=== PATIENT | female | born 1990 ===

== ENCOUNTER 2019-07-08 07:55 | Inpatient (IN) | payer BC ==
[2019-07-08] MEDS ORDERED: Tranexamic Acid 1,000 MG in Sodium Chloride 0.9% 100 ML IV PRN (08:42)
[2019-07-08] MEDS ORDERED: Carboprost Tromethamine 250 MCG/1 ML Amp IM PRN (08:42)
[2019-07-08] MEDS ORDERED: Sodium Chloride 0.9% 10 ML SDV IV PRN (08:42)
[2019-07-08] MEDS ORDERED: Misoprostol 25 MCG (1/4 of 100 MCG) Tab VAG PRN (08:42)
[2019-07-08] MEDS ORDERED: Lidocaine 1% 50 ML MDV INJECT PRN (08:42)
[2019-07-08] MEDS ORDERED: Water For Irrigation,Sterile 1,000 ML Container IRR PRN (08:42)
[2019-07-08] MEDS ORDERED: Sodium Chloride 0.9% 10 ML Syringe FLUSH PRN (08:42)
[2019-07-08] MEDS ORDERED: Misoprostol 200 MCG Tab PO PRN (08:42)
[2019-07-08] MEDS ORDERED: Ondansetron 4 MG/2 ML SDV IVPUSH PRN (08:42)
[2019-07-08] MEDS ORDERED: Methylergonovine 0.2 MG/1 ML Amp IM PRN (08:42)
[2019-07-08] MEDS ORDERED: Sodium Chloride 0.9% 2.5 ML Syringe FLUSH PRN (08:42)
[2019-07-08] MEDS ORDERED: Butorphanol 1 MG/ML SDV IVPUSH PRN (08:42)
[2019-07-08] MEDS ORDERED: Terbutaline 1 MG/ML SDV SUBCUT PRN (08:42)
[2019-07-08] MEDS ORDERED: Oxytocin/0.9 % Sodium Chloride 30 UNIT/500 ML BAG IV SCH ×2 (08:45)
[2019-07-08] MEDS: Lactated Ringers 1,000 ML IV SCH ×2 (08:54→21:36)
[2019-07-08] MEDS: Misoprostol 25 MCG (1/4 of 100 MCG) Tab VAG PRN ×2 (13:02→17:14)
[2019-07-09] MEDS: Nalbuphine 10 MG/1 ML Vial IVPUSH PRN ×2 (00:03→01:09)
[2019-07-09] MEDS ORDERED: Benzocaine/Menthol 20%-0.5% Spray 78 GM Cannister TOP PRN (02:39)
[2019-07-09] MEDS ORDERED: Witch Hazel Medicated Pads 40/Jar TOP PRN (02:39)
[2019-07-09] MEDS ORDERED: Ibuprofen 400 MG Tab PO PRN (02:39)
[2019-07-09] MEDS ORDERED: Lanolin 100% Cream 7 GM Tube TOP PRN (02:39)
[2019-07-09] MEDS ORDERED: Acetaminophen 500 MG Tab PO PRN ×2 (02:39)
[2019-07-09] MEDS ORDERED: Bisacodyl 10 MG Supp RECTAL PRN (02:39)
[2019-07-09] MEDS ORDERED: oxyCODONE 5 MG Tab PO PRN (02:39)
[2019-07-09] MEDS ORDERED: Docusate Sodium 100 MG Cap PO PRN (02:39)
--- NOTE | 2019-07-09 02:44 | PCM.DEL ---
L & D Note - General Info Date of Service: 07/09/19 Mother's Due Date: 07/10/19 - Delivery Note Labor: Augmented by Oxytocin Cervical Ripening Method: Misoprostil Delivery Outcome: Livebirth Presentation: Right Occiput Anterior (DAVION) Nuchal Cord: None Amniotic Fluid Description: Clear Laceration: 1st Degree Suture type: Other (monocryl 2.0) Suture size: 2-0 Cord: 3 Vessels Estimated Blood Loss: 300 Score 1 min: 8 Score 5 min: 9 Delivery Comments (Free Text/Narrative):: Live male delivered at 2.04am , 8/9 , weight pending - General Info Date of Service: 07/09/19 - Patient Data Weight - Most Recent: 70.76 kg Lab Results Last 24 Hours: Laboratory Results - last 24 hr 07/08/19 07/08/19 Range/Units 09:35 09:35 WBC 12.87 H (4.0-11.0) K/uL RBC 4.27 L (4.30-5.90) M/uL Hgb 12.6 (12.0-16.0) g/dL Hct 38.0 (36.0-46.0) % MCV 89.0 (80.0-98.0) fL MCH 29.5 (27.0-32.0) pg MCHC 33.2 (31.0-37.0) g/dL RDW Std Deviation 43.9 (28.0-62.0) fl RDW Coeff of Latrice 14 (11.0-15.0) % Plt Count 182 (150-400) K/uL MPV 10.50 (7.40-12.00) fL Nucleated RBC % 0.0 /100WBC Nucleated RBCs # 0 K/uL Blood Type A POSITIVE Antibody Screen NEGATIVE Med Orders - Current: Current Medications Acetaminophen (Tylenol Extra Strength) 500 mg PO Q4H PRN PRN Reason: Pain Butorphanol Tartrate (Stadol) 1 mg IVPUSH Q1H PRN PRN Reason: Pain Carboprost Tromethamine (Hemabate Ds) 250 mcg IM ASDIRECTED PRN PRN Reason: Post Hemorrhage Lactated Ringer's (Ringers, Lactated) 1,000 mls @ 150 mls/hr IV ASDIRECTED VANDANA Last Admin: 07/08/19 21:36 Dose: 50 mls/hr Oxytocin/Sodium Chloride (Oxytocin 30 Unit/500 Ml-Ns) 30 unit in 500 mls @ 999 mls/hr IV TITRATE VANDANA Oxytocin/Sodium Chloride (Oxytocin 30 Unit/500 Ml-Ns) 30 unit in 500 mls @ 2 mls/hr IV TITRATE VANDANA; Protocol Last Titration: 07/08/19 22:52 Dose: 4 munits/min, 4 mls/hr Tranexamic Acid 1,000 mg/ (Sodium Chloride) 110 mls @ 660 mls/hr IV ONETIME PRN PRN Reason: Bleeding Ibuprofen (Motrin) 400 mg PO Q4H PRN PRN Reason: Pain Ibuprofen (Motrin) 800 mg PO Q6H PRN PRN Reason: Pain Lidocaine HCl (Xylocaine 1%) 50 ml INJECT ONETIME PRN PRN Reason: Laceration repair Last Admin: 07/09/19 02:18 Dose: 50 ml Methylergonovine Maleate (Methergine) 0.2 mg IM ASDIRECTED PRN PRN Reason: Post Hemorrhage Misoprostol (Cytotec) 200 mcg PO ONETIME PRN PRN Reason: Post Hemorrhage Misoprostol (Cytotec) 25 mcg VAG ONETIME PRN PRN Reason: Cervical Ripening Last Admin: 07/08/19 09:09 Dose: 25 mcg Misoprostol (Cytotec) 25 mcg VAG Q4H PRN PRN Reason: Cervical Ripening Last Admin: 07/08/19 17:14 Dose: 25 mcg Nalbuphine HCl (Nubain) 10 mg IVPUSH Q1H PRN PRN Reason: Pain (severe 7-10) Last Admin: 07/09/19 01:09 Dose: 10 mg Ondansetron HCl (Zofran) 4 mg IVPUSH Q4H PRN PRN Reason: Nausea/Vomiting Oxycodone HCl (Oxycodone) 5 mg PO Q2H PRN PRN Reason: Pain Sodium Chloride (Saline Flush) 10 ml FLUSH ASDIRECTED PRN PRN Reason: Keep Vein Open Sodium Chloride (Saline Flush) 2.5 ml FLUSH ASDIRECTED PRN PRN Reason: Keep Vein Open Sodium Chloride (Normal Saline) 10 ml IV ASDIRECTED PRN PRN Reason: IV Use Sterile Water (Sterile Water For Irrigation) 1,000 ml IRR ASDIRECTED PRN PRN Reason: delivery Last Admin: 07/09/19 02:18 Dose: 1,000 ml Terbutaline Sulfate (Brethine) 0.25 mg SUBCUT ASDIRECTED PRN PRN Reason: Tacysystole Witch Della (Tucks) 1 pad TOP ASDIRECTED PRN PRN Reason: comfort care - Problem List & Annotations (1) Vaginal delivery SNOMED Code(s): 301590747 Code(s): O80 - ENCOUNTER FOR FULL-TERM UNCOMPLICATED DELIVERY Status: Acute Current Visit: Yes - Problem List Review Problem List Initiated/Reviewed/Updated: Yes - My Orders Last 24 Hours: My Active Orders 07/08/19 08:42 Patient Status [ADT] Routine Bedrest Bathroom Privileges [RC] ASDIRECTED Communication Order [RC] ASDIRECTED Communication Order [RC] ASDIRECTED Communication Order [RC] ASDIRECTED Heart Tones [RC] CONTINUOUS Non Stress Test [RC] PER UNIT ROUTINE May Shower [RC] ASDIRECTED Notify Provider [RC] PRN Notify Provider [RC] PRN Notify Provider [RC] PRN Notify Provider [RC] STAT Oxygen Therapy [RC] ASDIRECTED Up ad Suzie [RC] ASDIRECTED Vaginal Exam [RC] PRN Vaginal Exam [RC] PRN Vital Signs [RC] PER UNIT ROUTINE Vital Signs [RC] PER UNIT ROUTINE Butorphanol [Stadol] 1 mg IVPUSH Q1H PRN Carboprost Tromethamine [Hemabate DS] 250 mcg IM ASDIRECTED PRN Lidocaine 1% [Xylocaine 1%] 50 ml INJECT ONETIME PRN Methylergonovine [Methergine] 0.2 mg IM ASDIRECTED PRN Nalbuphine [Nubain] 10 mg IVPUSH Q1H PRN Ondansetron [Zofran] 4 mg IVPUSH Q4H PRN Sodium Chloride 0.9% [Normal Saline] 10 ml IV ASDIRECTED PRN Sodium Chloride 0.9% [Saline Flush] 10 ml FLUSH ASDIRECTED PRN Sodium Chloride 0.9% [Saline Flush] 2.5 ml FLUSH ASDIRECTED PRN Terbutaline [Brethine] 0.25 mg SUBCUT ASDIRECTED PRN Tranexamic Acid [Cyklokapron] 1,000 mg Sodium Chloride 0.9% [Normal Saline] 100 ml IV ONETIME Water For Irrigation,Sterile [Sterile Water for Irrigation] 1,000 ml IRR ASDIRECTED PRN miSOPROStol [Cytotec] 200 mcg PO ONETIME PRN miSOPROStol [Cytotec] 25 mcg VAG ONETIME PRN miSOPROStol [Cytotec] 25 mcg VAG Q4H PRN Peripheral IV Insertion Adult [OM.PC] Routine 07/08/19 08:45 Lactated Ringers [Ringers, Lactated] 1,000 ml IV ASDIRECTED Oxytocin/0.9 % Sodium Chloride [Oxytocin 30 Unit/500 ML-NS] 30 unit in 500 ml IV TITRATE Oxytocin/0.9 % Sodium Chloride [Oxytocin 30 Unit/500 ML-NS] 30 unit in 500 ml IV TITRATE Medication Administration Instruction [OM.PC] Q3H 07/09/19 02:39 Patient Status [ADT] Routine May Shower [RC] ASDIRECTED Up ad Suzie [RC] ASDIRECTED Vital Signs [RC] PER UNIT ROUTINE Acetaminophen [Tylenol Extra Strength] 1,000 mg PO Q4H PRN Acetaminophen [Tylenol Extra Strength] 500 mg PO Q4H PRN Benzocaine/Menthol [Dermoplast Pain Relief 20%-0.5% [place]] 78 gm TOP ASDIRECTED PRN Bisacodyl [Dulcolax] 10 mg RECTAL ONETIME PRN Docusate Sodium [Colace] 100 mg PO BID PRN Ibuprofen [Motrin] 400 mg PO Q4H PRN Ibuprofen [Motrin] 800 mg PO Q6H PRN Lanolin [Lansinoh HPA] See Dose Instructions TOP ASDIRECTED PRN Witch Della [Tucks] 1 pad TOP ASDIRECTED PRN oxyCODONE 5 mg PO Q2H PRN Assess Lochia [WOMSER] Per Unit Routine Assess Uterine Involution [WOMSER] Per Unit Routine Peripheral IV Discontinue [OM.PC] Routine 07/10/19 05:11 HEMOGLOBIN/HEMATOCRIT,HH [HEME] Timed
--- NOTE | 2019-07-09 14:27 | OR ---
SURGEON: MARCY SERRANO DATE OF PROCEDURE: 07/09/2019 PREOPERATIVE DIAGNOSES: A 29-year-old, G1, P0, at 39 weeks and 6 days, admitted for induction of labor, elective. POSTOPERATIVE DIAGNOSES: A 29-year-old, G1, P0, at 39 weeks and 6 days, admitted for induction of labor, elective. PROCEDURE: Normal spontaneous vaginal delivery. ESTIMATED BLOOD LOSS: 300. IV FLUID: Pitocin running. ANESTHESIA: Local. NOTES AND FINDINGS: Live male delivered at 2:04 a.m. score is 8 and 9, weight is 3380 g. Date of delivery was 07/09/2019. BRIEF HISTORY: A 29-year-old, G1, P0 at 39 weeks and 6 days, low risk patient who wanted an elective induction of labor. Induction of labor was started with Cytotec, after which she got Pitocin. AROM was done, which was noted to be clear fluid. She also had a very bloody show. Tracing was category I. She then made change to being fully dilated and she was encouraged to push procedure with good pushing effort. PROCEDURE: She delivered the head, subsequently by the anterior and posterior shoulder. The body of the infant was delivered. Infant was placed on maternal abdomen. Delayed cord clamping was observed. Placenta was delivered via controlled cord traction. Cord blood gases were obtained. The perineum was inspected, noted to have first-degree laceration, which was approximated after infiltration of local anesthesia with 2-0 Monocryl. Uterus was noted to be contracted. All instrument and pad count were correct x2. The patient tolerated the procedure well and was left the Labor and Delivery room in stable condition. JENNI TANG /[id number] MTDNata
[2019-07-09] MEDS: Ibuprofen 800 MG Tab PO PRN (15:24)
[2019-07-10] MEDS: Ibuprofen 800 MG Tab PO PRN (05:14)
--- NOTE | 2019-07-10 09:01 | PCM.PNPP ---
- General Info Date of Service: 07/10/19 Functional Status: Reports: Pain Controlled, Tolerating Diet, Ambulating, Urinating - Review of Systems General: Reports: No Symptoms HEENT: Reports: No Symptoms Pulmonary: Reports: No Symptoms Cardiovascular: Reports: No Symptoms Gastrointestinal: Reports: No Symptoms Genitourinary: Reports: No Symptoms Musculoskeletal: Reports: No Symptoms Skin: Reports: No Symptoms Neurological: Reports: No Symptoms Psychiatric: Reports: No Symptoms - General Info Date of Service: 07/10/19 - Patient Data Vital Signs - Most Recent: Last Vital Signs Temp 36.9 C 07/10/19 07:45 Pulse 77 07/10/19 07:45 Resp 16 07/10/19 07:45 BP 97/53 L 07/10/19 07:46 Pulse Ox 97 07/10/19 07:45 Weight - Most Recent: 70.76 kg Lab Results - Last 24 Hours: Laboratory Results - last 24 hr 07/10/19 Range/Units 05:00 Hgb 11.8 L (12.0-16.0) g/dL Hct 36.7 (36.0-46.0) % Med Orders - Current: Current Medications Acetaminophen (Tylenol Extra Strength) 500 mg PO Q4H PRN PRN Reason: Pain Acetaminophen (Tylenol Extra Strength) 1,000 mg PO Q4H PRN PRN Reason: Pain Last Admin: 07/09/19 20:57 Dose: 1,000 mg Benzocaine/Menthol (Dermoplast Pain Relief 20%-0.5% [place]) 78 gm TOP ASDIRECTED PRN PRN Reason: Perineal Comfort Measure Last Admin: 07/09/19 17:57 Dose: 78 gm Bisacodyl (Dulcolax) 10 mg RECTAL ONETIME PRN PRN Reason: Constipation Butorphanol Tartrate (Stadol) 1 mg IVPUSH Q1H PRN PRN Reason: Pain Carboprost Tromethamine (Hemabate Ds) 250 mcg IM ASDIRECTED PRN PRN Reason: Post Hemorrhage Docusate Sodium (Colace) 100 mg PO BID PRN PRN Reason: Constipation Emollient Ointment (Lansinoh Hpa) 0 gm TOP ASDIRECTED PRN PRN Reason: Sore Nipples Lactated Ringer's (Ringers, Lactated) 1,000 mls @ 150 mls/hr IV ASDIRECTED VANDANA Last Admin: 07/08/19 21:36 Dose: 50 mls/hr Oxytocin/Sodium Chloride (Oxytocin 30 Unit/500 Ml-Ns) 30 unit in 500 mls @ 999 mls/hr IV TITRATE VANDANA Oxytocin/Sodium Chloride (Oxytocin 30 Unit/500 Ml-Ns) 30 unit in 500 mls @ 2 mls/hr IV TITRATE VANDANA; Protocol Last Titration: 07/09/19 02:10 Dose: 999 mls/hr Tranexamic Acid 1,000 mg/ (Sodium Chloride) 110 mls @ 660 mls/hr IV ONETIME PRN PRN Reason: Bleeding Ibuprofen (Motrin) 400 mg PO Q4H PRN PRN Reason: Pain Ibuprofen (Motrin) 800 mg PO Q6H PRN PRN Reason: Pain Last Admin: 07/10/19 05:14 Dose: 800 mg Lidocaine HCl (Xylocaine 1%) 50 ml INJECT ONETIME PRN PRN Reason: Laceration repair Last Admin: 07/09/19 02:18 Dose: 50 ml Methylergonovine Maleate (Methergine) 0.2 mg IM ASDIRECTED PRN PRN Reason: Post Hemorrhage Misoprostol (Cytotec) 200 mcg PO ONETIME PRN PRN Reason: Post Hemorrhage Misoprostol (Cytotec) 25 mcg VAG ONETIME PRN PRN Reason: Cervical Ripening Last Admin: 07/08/19 09:09 Dose: 25 mcg Misoprostol (Cytotec) 25 mcg VAG Q4H PRN PRN Reason: Cervical Ripening Last Admin: 07/08/19 17:14 Dose: 25 mcg Nalbuphine HCl (Nubain) 10 mg IVPUSH Q1H PRN PRN Reason: Pain (severe 7-10) Last Admin: 07/09/19 01:09 Dose: 10 mg Ondansetron HCl (Zofran) 4 mg IVPUSH Q4H PRN PRN Reason: Nausea/Vomiting Oxycodone HCl (Oxycodone) 5 mg PO Q2H PRN PRN Reason: Pain Sodium Chloride (Saline Flush) 10 ml FLUSH ASDIRECTED PRN PRN Reason: Keep Vein Open Sodium Chloride (Saline Flush) 2.5 ml FLUSH ASDIRECTED PRN PRN Reason: Keep Vein Open Sodium Chloride (Normal Saline) 10 ml IV ASDIRECTED PRN PRN Reason: IV Use Sterile Water (Sterile Water For Irrigation) 1,000 ml IRR ASDIRECTED PRN PRN Reason: delivery Last Admin: 07/09/19 02:18 Dose: 1,000 ml Terbutaline Sulfate (Brethine) 0.25 mg SUBCUT ASDIRECTED PRN PRN Reason: Tacysystole Witch Della (Tucks) 1 pad TOP ASDIRECTED PRN PRN Reason: comfort care Last Admin: 07/09/19 17:56 Dose: 1 canister - Interaction Support Person: - Recovery Exam Fundal Tone: Firm Fundal Level: At Umbilicus Fundal Placement: Midline Lochia Amount: Scant Lochia Color: Rubra/Red Episiotomy/Laceration: Approximated Bladder Status: Voiding Urinary Elimination: Voided - Exam General: Alert HEENT: Pupils Equal Neck: Supple Lungs: Clear to Auscultation Cardiovascular: Regular Rate, Regular Rhythm GI/Abdominal Exam: Normal Bowel Sounds Extremities: Normal Inspection Neurological: No New Focal Deficit - Problem List & Annotations (1) Vaginal delivery SNOMED Code(s): 816989831 Code(s): O80 - ENCOUNTER FOR FULL-TERM UNCOMPLICATED DELIVERY Status: Acute Current Visit: Yes - Problem List Review Problem List Initiated/Reviewed/Updated: Yes - Assessment Assessment:: 29yo P1 s/p , PPD1 , stable , ambulating , tolerating regular diet - Plan Plan:: Discharge home today
== END 2019-07-10 12:05 | disposition home or self-care (01) | DRG 560 ==
LOC: MW.OBCHECK 07:55 → MW.OB 07:56 → OBSVTOIN 07-09 02:04 → MW.OB 07-09 05:57
PROVIDERS: ADMIT Obstetrics & Gynecology; ATTEND Obstetrics & Gynecology
PROC: 10E0XZZ Delivery of Products of Conception, External Approach (ICD-10-PCS; principal; 2019-07-09)
PROC: 10907ZC Drainage of Amniotic Fluid, Therapeutic from Products of Conception, Via Natural or Artificial Opening (ICD-10-PCS; 2019-07-09)
PROC: 3E0P7VZ Introduction of Hormone into Female Reproductive, Via Natural or Artificial Opening (ICD-10-PCS; 2019-07-09)
PROC: 0HQ9XZZ Repair Perineum Skin, External Approach (ICD-10-PCS; 2019-07-09)
DX: O70.0 First degree perineal laceration during delivery (principal); Z37.0 Single live birth; Z3A.39 39 weeks gestation of pregnancy; Z90.49 Acquired absence of other specified parts of digestive tract
CPT/HCPCS: 36415; 59025; 59409; 85014; 85018; 85027; 86850; 86900; 86901; A9270-GY; J2001; J2300; J2590; J7120

== ENCOUNTER 2022-02-11 20:23 | Inpatient (IN) | payer BC ==
[2022-02-11] MEDS ORDERED: Water For Irrigation,Sterile 1,000 ML Container IRR PRN (21:18)
[2022-02-11] MEDS ORDERED: Sodium Chloride 0.9% 2.5 ML Syringe FLUSH PRN (21:18)
[2022-02-11] MEDS ORDERED: Sodium Chloride 0.9% 20 ML SDV IV PRN (21:18)
[2022-02-11] MEDS ORDERED: Misoprostol 25 MCG (1/4 of 100 MCG) Tab VAG PRN (21:18)
[2022-02-11] MEDS ORDERED: Sodium Chloride 0.9% 10 ML Syringe FLUSH PRN (21:18)
[2022-02-11] MEDS ORDERED: Tranexamic Acid 1,000 MG in Sodium Chloride 0.9% 100 ML IV PRN (21:18)
[2022-02-11] MEDS ORDERED: Lidocaine 1% 50 ML MDV INJECT PRN (21:18)
[2022-02-11] MEDS ORDERED: Misoprostol 200 MCG Tab PO PRN (21:18)
[2022-02-11] MEDS ORDERED: Butorphanol 1 MG/ML SDV IVPUSH PRN (21:18)
[2022-02-11] MEDS ORDERED: Methylergonovine 0.2 MG/1 ML Amp IM PRN (21:18)
[2022-02-11] MEDS ORDERED: Carboprost Tromethamine 250 MCG/1 ML Amp IM PRN (21:18)
[2022-02-11] MEDS ORDERED: Terbutaline 1 MG/ML SDV SUBCUT PRN (21:18)
[2022-02-11] MEDS ORDERED: Oxytocin/0.9 % Sodium Chloride 30 UNIT/500 ML BAG IV SCH ×2 (21:30)
[2022-02-11] MEDS: Lactated Ringers 1,000 ML IV SCH (23:00)
[2022-02-12] MEDS: Lactated Ringers 1,000 ML IV SCH (05:55)
[2022-02-12] MEDS ORDERED: oxyCODONE 5 MG Tab PO PRN (10:48)
[2022-02-12] MEDS ORDERED: Ibuprofen 400 MG Tab PO PRN (10:48)
[2022-02-12] MEDS ORDERED: Benzocaine/Menthol 20%-0.5% Spray 78 GM Cannister TOP PRN (10:48)
[2022-02-12] MEDS ORDERED: Witch Hazel Medicated Pads 40/Jar TOP PRN (10:48)
[2022-02-12] MEDS ORDERED: Docusate Sodium 100 MG Cap PO PRN (10:48)
[2022-02-12] MEDS ORDERED: Lanolin 100% Cream 7 GM Tube TOP PRN (10:48)
[2022-02-12] MEDS ORDERED: Acetaminophen 500 MG Tab PO PRN (10:48)
[2022-02-12] MEDS ORDERED: Bisacodyl 10 MG Supp RECTAL PRN (10:48)
[2022-02-12] MEDS: Acetaminophen 500 MG Tab PO PRN ×2 (15:45→19:56)
[2022-02-12] MEDS: Ibuprofen 800 MG Tab PO PRN (17:50)
[2022-02-13] MEDS: Ibuprofen 800 MG Tab PO PRN ×2 (00:49→08:16)
[2022-02-13] MEDS: Acetaminophen 500 MG Tab PO PRN ×2 (00:50→08:16)
== END 2022-02-13 14:30 | disposition home or self-care (01) | DRG 560 ==
LOC: MW.OBCHECK 20:23 → MW.OB 20:32 → MW.OBCHECK 21:18 → MW.OB 02-12 01:28 → OBSVTOIN 02-12 10:31 → MW.OB 02-12 14:37
PROVIDERS: ADMIT Obstetrics & Gynecology; ATTEND Obstetrics & Gynecology
PROC: 10E0XZZ Delivery of Products of Conception, External Approach (ICD-10-PCS; principal; 2022-02-12)
PROC: 10907ZC Drainage of Amniotic Fluid, Therapeutic from Products of Conception, Via Natural or Artificial Opening (ICD-10-PCS; 2022-02-12)
PROC: 3E033VJ Introduction of Other Hormone into Peripheral Vein, Percutaneous Approach (ICD-10-PCS; 2022-02-12)
DX: O80 Encounter for full-term uncomplicated delivery (principal); Z3A.39 39 weeks gestation of pregnancy; Z37.0 Single live birth
CPT/HCPCS: 36415; 59025; 59409; 85014; 85018; 85027; 86592; 86850; 86900; 86901; A9270-GY; J0595; J2590; J7120; U0002